=== PATIENT | female | born 1960 | race Caucasian/White ===

== ENCOUNTER 2020-08-09 12:01 | Outpatient (CLI) | payer OTHER ==
[~2020-08-09 12:01] MED LIST: Iopamidol 370 76% 100 ML VIAL ONE
== END 2020-08-09 12:02 | disposition home or self-care (01) ==
LOC: CT 12:01
PROVIDERS: ATTEND Internal Medicine Pulmonary Disease
DX: J84.10 Pulmonary fibrosis, unspecified (principal); E04.1 Nontoxic single thyroid nodule
CPT/HCPCS: 71260; 82565; Q9967

== ENCOUNTER 2021-12-05 15:13 | Outpatient (CLI) | payer OTHER | END 2021-12-05 15:14 | disposition home or self-care (01) | LOC: LABBT 15:13 | PROVIDERS: ATTEND Internal Medicine | DX: Z20.822 Contact with and (suspected) exposure to COVID-19 (principal) | CPT/HCPCS: 87811 ==

== ENCOUNTER 2021-12-06 08:50 | Day surgery (SDC) | payer OTHER ==
[2021-12-05 10:01] VITALS: BMI 22.4
[2021-12-06] MEDS ORDERED: PROPOFOL 200 MG/20 ML VIAL ONE (10:45)
== END 2021-12-06 12:18 | disposition home or self-care (01) ==
LOC: SDC 08:50
PROVIDERS: ATTEND Internal Medicine
PROC: 0DJD8ZZ Inspection of Lower Intestinal Tract, Via Natural or Artificial Opening Endoscopic (ICD-10-PCS; principal; 2021-12-06)
DX: Z12.11 Encounter for screening for malignant neoplasm of colon (principal); K64.8 Other hemorrhoids; J45.909 Unspecified asthma, uncomplicated; K21.9 Gastro-esophageal reflux disease without esophagitis; Z86.010 Personal history of colon polyps; Z88.0 Allergy status to penicillin; Z88.8 Allergy status to other drugs, medicaments and biological substances; Z91.013 Allergy to seafood; Z91.041 Radiographic dye allergy status
CPT/HCPCS: J2704

== ENCOUNTER 2022-06-21 20:11 | Emergency (ER) | payer OTHER ==
[2022-06-21] MEDS ORDERED: HYDROcodone/Acetaminophen 5/325 mg Tablet ONE (21:34)
== END 2022-06-21 21:40 | disposition home or self-care (01) ==
LOC: ERS 20:11
DX: S30.0XXA Contusion of lower back and pelvis, initial encounter (principal); K21.9 Gastro-esophageal reflux disease without esophagitis; E03.9 Hypothyroidism, unspecified; W18.30XA Fall on same level, unspecified, initial encounter; Y92.091 Bathroom in other non-institutional residence as the place of occurrence of the external cause
CPT/HCPCS: 72100; 72220